=== PATIENT | male | born 2000 | race African-American/Black ===

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

== ENCOUNTER 2019-01-08 08:46 | Emergency (ER) | payer MEDICAID ==
[~2019-01-08] VITALS: Ht 180.3 cm; Wt 81.2 kg
[2019-01-08 09:09] VITALS: Ht 180.3 cm; Wt 81.2 kg
[2019-01-08 10:56] VITALS: BP 130/60
== END 2019-01-08 10:56 | disposition home or self-care (01) ==
LOC: ED 08:46
DX: R05 Cough (principal); J45.909 Unspecified asthma, uncomplicated; Z98.890 Other specified postprocedural states; Z88.1 Allergy status to other antibiotic agents
CPT/HCPCS: J7512; J7620